=== PATIENT | female | born 1990 | race Caucasian/White ===

== ENCOUNTER 2016-10-20 16:17 | Outpatient (CLI) | payer OTHER ==
--- NOTE | 2016-10-20 17:10 | DIAGNOSTIC IMAGING REPORT ---
PROCEDURE: US SOFT TISSUE THYR/NECK/HEAD INDICATION: ENLARGED THYROID TECHNIQUE: Rodriguez scale and color Doppler sonographic images of the thyroid gland were obtained. COMPARISON: None. FINDINGS: The right thyroid lobe measures 6.1 x 2.2 x 1.9 cm. The left thyroid lobe measures 5.4 x 1.9 x 1.9 cm. The isthmus measures 5 mm in thickness. The echotexture of the gland is mainly homogeneous. A few tiny colloid cysts are seen in the right thyroid lobe. There is a tiny isoechoic nodule with hypoechoic rim in the inferior right lobe measuring 8 mm and a similar appearing nodule, isoechoic with a slightly hypoechoic rim in the superior left lobe measuring 6 mm. There are no suspicious calcifications. Color Doppler imaging demonstrates homogeneous vascularity throughout the gland. Normal lymph nodes are seen in the lateral compartment bilaterally. IMPRESSION: 1. Mildly, symmetrically enlarged thyroid gland. This can be seen in thyroiditis. Correlate with serum thyroid studies. 2. Sub-centimeter isoechoic nodules in each lobe without suspicious features.
--- NOTE | 2016-10-20 17:23 | DIAGNOSTIC IMAGING REPORT ---
PROCEDURE: US ABDOMEN ULTRASOUND-LIMITED INDICATION: BILIARY COLIC TECHNIQUE: Rodriguez scale and color Doppler sonographic images were obtained of the right upper quadrant. COMPARISON: 01/17/2016 FINDINGS: The liver is normal in size, contour, and echotexture. No mass or biliary dilatation. The gallbladder wall is now mildly thickened and hyperemic. The ranges from 3.8-4.9 mm. There was no Gamez's sign or pericholecystic fluid. There is a mobile stone measuring 2.9 cm. There is also debris dependently within the gallbladder. The common duct remains normal caliber at 3.4 mm. The visible portion of the inferior vena cava, abdominal aorta, and portal vein appear normal with appropriate direction of flow in the portal vein. The right kidney is normal measuring 12.9 cm. No free fluid in the right upper quadrant. IMPRESSION: 1. Cholelithiasis. 2. Mild gallbladder wall thickening and hyperemia but no focal Gamez's sign or impacted stone visible. Nonetheless, findings are mildly suspicious for cholecystitis, probably acute on chronic cholecystitis. Surgical consult recommended. 3. Normal common duct and liver. 4. Findings called to Dr. Coppola in the office of Krzysztof Go.
== END 2016-10-20 23:00 ==
LOC: US SRH 16:17
DX: E04.9 Nontoxic goiter, unspecified (principal); K80.20 Calculus of gallbladder without cholecystitis without obstruction; K82.9 Disease of gallbladder, unspecified